=== PATIENT | male | born 1950 | race Caucasian/White ===

== ENCOUNTER → 2019-06-17 | Outpatient (CLI) | payer MEDICARE, OTHER ==
[~2019-06-17] VITALS: Ht 177 cm; Wt 113.0 kg
[~2019-06-17] MED LIST: CATHETER FLUSH 10 ML SYR IV PRN; KCL20TCR; METO50TA7; OLME40TA12; REGADENOSON 0.4 MG/5 ML SYR (LEXISCAN) IV ONE; SMV20T
--- NOTE | 2019-06-19 12:46 | STRESS TEST ---
DATE OF SERVICE: 06/17/2019 RESTING AND POST REGADENOSON TECHNETIUM-99M TETROFOSMIN SPECT CT IMAGING ORDERING PHYSICIAN: Dr. Sales. PRIMARY PHYSICIAN: Dr. Rodrigues. CLINICAL DIAGNOSIS: Syncope. Baseline images were carried out after injection of 10.72 mCi of technetium-99m Tetrofosmin. This was followed by 0.4 mg regadenoson and 32 mCi of technetium-99m Tetrofosmin for stress imaging. The electrocardiogram showed sinus rhythm at baseline. It did not change significantly with the regadenoson infusion. The patient tolerated the procedure well. Review of images at rest and following stress does not indicate any significant perfusion defects consistent with significant myocardial ischemia or infarction. Gated images show normal global left ventricular systolic function with normal regional wall motion. Left ventricular ejection fraction is calculated to be 68%. CONCLUSIONS: 1. No evidence of any significant myocardial ischemia or infarction is seen. 2. Normal regional wall motion. 3. Normal global left ventricular systolic function with a calculated ejection fraction of 68%. Job ID: [id number] DocumentID: [id number] Dictated Date: 06/19/2019 11:03:55 Rn Hemodialysis Charge Date: 06/19/2019 12:46:01 Dictated By: JOSE MIGUEL SALES MD, MA, FACP, FACC,
== END ==
LOC: CARD 08:12
PROVIDERS: ATTEND Internal Medicine Cardiovascular Disease
DX: I11.9 Hypertensive heart disease without heart failure (principal); E11.9 Type 2 diabetes mellitus without complications; E78.5 Hyperlipidemia, unspecified
CPT/HCPCS: 78452; 93017; 93306

== ENCOUNTER → 2020-06-30 | Outpatient (CLI) | payer MEDICARE, OTHER ==
[~2020-06-30] MED LIST changes: -CATHETER FLUSH 10 ML SYR IV PRN; -REGADENOSON 0.4 MG/5 ML SYR (LEXISCAN) IV ONE
[2020-06-30 12:29] LABS: WHITE BLOOD COUNT 8.6 10^3/uL (4.3-11.0)
[2020-06-30 12:30] LABS: ABSOLUTE RETIC # 101 10e9/uL (24-90); BASOPHILS % (AUTO) 0 % (0-10); EOSINOPHILS % (AUTO) 0 % (0-10); HEMATOCRIT 57 % (40-54); HEMOGLOBIN 18.2 g/dL (13.3-17.7); LYMPHOCYTES # (AUTO) 3.3 10^3/uL (1.0-4.0); LYMPHOCYTES % (AUTO) 38 % (12-44); MEAN CORPUSCULAR HEMOGLOBIN 29 pg (25-34); MEAN CORPUSCULAR HGB CONC 32 g/dL (32-36); MEAN CORPUSCULAR VOLUME 90 fL (80-99); MONOCYTES # (AUTO) 0.9 10^3/uL (0.0-1.0); MONOCYTES % (AUTO) 10 % (0-12); NEUTROPHILS # (AUTO) 4.3 10^3/uL (1.8-7.8); NEUTROPHILS % (AUTO) 50 % (42-75); PLATELET COUNT 195 10^3/uL (130-400)
[2020-06-30 13:21] LABS: NEUTROPHILS % (MANUAL) 60 %
[2020-06-30 13:22] LABS: BAND NEUTROPHILS 2 %; BASOPHILS % (MANUAL) 0 %; EOSINOPHILS % (MANUAL) 0 %; LYMPHOCYTES % (MANUAL) 16 %; MONOCYTES % (MANUAL) 8 %; REACTIVE LYMPHOCYTES 14 %; TOXIC GRANULATION/VACUOLAZATIO 2+
== END ==
LOC: GIR 12:15
PROVIDERS: ATTEND Nurse Practitioner Family
DX: D58.2 Other hemoglobinopathies (principal); R71.8 Other abnormality of red blood cells
CPT/HCPCS: 85007; 85027; 85045

== ENCOUNTER → 2020-08-16 | Outpatient (CLI) | payer MEDICARE, OTHER ==
[2020-08-16 14:22] LABS: ABSOLUTE RETIC # 99 10e9/uL (24-90); BASOPHILS % (AUTO) 0 % (0-10); EOSINOPHILS % (AUTO) 0 % (0-10); HEMATOCRIT 57 % (40-54); HEMOGLOBIN 18.5 g/dL (13.3-17.7); LYMPHOCYTES # (AUTO) 1.8 10^3/uL (1.0-4.0); LYMPHOCYTES % (AUTO) 22 % (12-44); MEAN CORPUSCULAR HEMOGLOBIN 29 pg (25-34); MEAN CORPUSCULAR HGB CONC 33 g/dL (32-36); MEAN CORPUSCULAR VOLUME 90 fL (80-99); MEAN PLATELET VOLUME 9.9 fL (9.0-12.2); MONOCYTES # (AUTO) 0.7 10^3/uL (0.0-1.0); MONOCYTES % (AUTO) 9 % (0-12); NEUTROPHILS # (AUTO) 5.5 10^3/uL (1.8-7.8); NEUTROPHILS % (AUTO) 68 % (42-75); PLATELET COUNT 200 10^3/uL (130-400); RETICULOCYTE % 1.56 % (0.50-2.40); WHITE BLOOD COUNT 8.2 10^3/uL (4.3-11.0)
[2020-08-16 14:41] LABS: BAND NEUTROPHILS 0 %; BASOPHILS % (MANUAL) 0 %; EOSINOPHILS % (MANUAL) 0 %; LYMPHOCYTES % (MANUAL) 8 %; MONOCYTES % (MANUAL) 5 %; NEUTROPHILS % (MANUAL) 73 %; RBC MORPH NORMAL; REACTIVE LYMPHOCYTES 14 %
== END ==
LOC: LABNPT 14:06
PROVIDERS: ATTEND Internal Medicine Hematology & Oncology
DX: D75.1 Secondary polycythemia (principal)
CPT/HCPCS: 85007; 85027; 85045; 85055